=== PATIENT | female | born 1955 | race Caucasian/White ===

== ENCOUNTER 2017-03-14 08:30 | Inpatient (IN) | payer BC ==
[2017-02-22 08:19] VITALS: Ht 161.3 cm; Wt 76.0 kg
--- NOTE | 2017-02-22 08:55 | PAT Medication Instructions ---
Service Date Feb 22, 2017. Current Home Medication List Acetaminophen (Tylenol Arthritis Ext Rel), 2 TAB PO Q8H PRN for Pain Amoxapine (Amoxapine), 1 TAB PO HS Atenolol (Tenormin), 50 MG PO QAM Cetirizine (Zyrtec), 10 MG PO HS Clonazepam (Klonopin), 0.5 MG PO BID PRN for ANXIETY Coenzyme Q10 (Ubidecarenone) (Coq-10), 1 CAP PO QAM Gabapentin (Neurontin), 300 MG PO TID Hydrochlorothiazide (Hctz), 25 MG PO QAM Lactic Acid (Ammonium Lactate Cream 12%), 1 DOSE TOP UD PRN for DRYNESS Lisinopril (Zestril), 20 MG PO QPM Meloxicam (Mobic), 7.5 MG PO BID Red Yeast Rice Extract (Red Yeast Rice), 2 CAP PO QAM Triamcinolone Acet (Aristocort 0.1%), Unknown Dose for RASHES Medication Instructions For Your Scheduled Surgery Meloxicam (Mobic), 7.5 MG PO BID (check with surgeon for instructions) - Hold the following medications 2 weeks prior to surgery: Red Yeast Rice Extract (Red Yeast Rice), 2 CAP PO QAM Coenzyme Q10 (Ubidecarenone) (Coq-10), 1 CAP PO QAM - Hold the following medications 24 hours prior to surgery: Triamcinolone Acet (Aristocort 0.1%), Unknown Dose for RASHES - Hold the following medications the morning of surgery: Lactic Acid (Ammonium Lactate Cream 12%), 1 DOSE TOP UD PRN for DRYNESS Hydrochlorothiazide (Hctz), 25 MG PO QAM - Take the following medications the morning of surgery with a sip of water: Acetaminophen (Tylenol Arthritis Ext Rel), 2 TAB PO Q8H PRN for Pain Atenolol (Tenormin), 50 MG PO QAM Gabapentin (Neurontin), 300 MG PO TID Clonazepam (Klonopin), 0.5 MG PO BID PRN for ANXIETY - Hold the following medications as scheduled the night before surgery: Lisinopril (Zestril), 20 MG PO QPM - Take the following medications as scheduled the night before surgery: Acetaminophen (Tylenol Arthritis Ext Rel), 2 TAB PO Q8H PRN for Pain Gabapentin (Neurontin), 300 MG PO TID Cetirizine (Zyrtec), 10 MG PO HS Clonazepam (Klonopin), 0.5 MG PO BID PRN for ANXIETY Amoxapine (Amoxapine), 1 TAB PO HS If you have any questions please call us at [phone] (Sylwia Jimenez PA-C) or [phone] or [phone]
[2017-02-22 09:47] LABS: BASO % 0.5 %; BASO ABS # 0.03 K/uL (0-0.2); COMPLETE YES; EOS % 2.5 %; HEMATOCRIT 35.4 % (37-47); IG% 0.4 %; LYMPH % 27.5 %; LYMPH ABS # 1.56 K/uL (1.2-3.4); MEAN CELL VOLUME 87.8 fL (80-100); MEAN CORPUSCULAR HEMOGLOBIN 29.5 pg (25-34); MEAN CORPUSCULAR HGB CONC 33.6 g/dl (32-36); MEAN PLATELET VOLUME 10.6 fL (7.4-10.4); MONO % 6.7 %; NEUT % 62.4 %; PLATELET COUNT 212 K/uL (130-400); RED BLOOD COUNT 4.03 M/uL (4.2-5.4); WHITE BLOOD COUNT 5.68 K/uL (4.8-10.8)
[2017-02-22 10:00] LABS: INR 0.9 (0.9-1.1); PARTIAL THROMBOPLASTIN RATIO 0.9
[2017-02-22 10:08] LABS: ESTIMATED AVERAGE GLUCOSE 134 mg/dl; HA1C FLAG Normal (Normal)
--- NOTE | 2017-02-22 10:36 | DIAGNOSTIC IMAGING REPORT ---
CHEST PREADMISSION(PA/LAT) HISTORY: Preop. COMPARISON: None. FINDINGS: Small linear scarlike density within the lingula. The lungs are otherwise clear. No pleural effusions. No pneumothorax. The heart is normal in size. IMPRESSION: No acute process. Electronically signed by: Oscar Hamilton M.D. 02/22/2017 10:35 AM Dictated Date/Time: 02/22/2017 9:39 AM
[2017-02-22 11:15] LABS: BUN/CREATININE RATIO 30.5 (10-20); CALCIUM 9.2 mg/dl (8.5-10.1); CREATININE 1.3 mg/dl (0.60-1.20); POTASSIUM 5.3 mmol/L (3.5-5.1)
--- NOTE | 2017-03-10 21:39 | HISTORY & PHYSICAL EXAMINATION ---
DATE OF ADMISSION: 03/14/2017 CHIEF COMPLAINT: Left knee pain. HISTORY OF PRESENT ILLNESS: A 62-year-old female, who presents on referral from my partner Dr. Madison for treatment of her left knee primarily. She has got a long history of bilateral knee pain and discomfort, left side greater than the right. She has been through extensive conservative care which has become less successful with time. Both the knees hurt, but the left knee hurts more than the right. She describes global pain. The more she walks, the more it hurts. She has nighttime discomfort. She has been through extensive conservative care including medicines and injections with minimal relief recently. She would like to have her left knee replaced. PAST MEDICAL HISTORY: Significant for: 1. Elevated cholesterol. 2. Hypertension. 3. Fibromyalgia. 4. Raynaud's phenomenon. 5. Diabetes. 6. Osteoarthritis. PAST SURGICAL HISTORY: Includes: 1. x2. 2. D\T\C. 3. Nasal silicone button insertion. 4. Hemorrhoid surgery x2. ALLERGIES: TO CLINDAMYCIN WHICH CAUSES FLUSHING, STATINS WHICH CAUSES MUSCLE PAIN, NARCOTICS WHICH CAUSES NAUSEA, DEMEROL WHICH CAUSES FLUSHING, PENICILLIN WHICH CAUSES HIVES AND LEVAQUIN, MOLD AND MILDEW. CURRENT MEDICINES: Include: 1. Atenolol 50 mg once a day. 2. Hydrochlorothiazide 25 mg. 3. Neurontin 300 mg three times a day. 4. Zyrtec 10 mg a day. 5. Meloxicam 15 mg a day. 6. Lisinopril 20 mg a day. 7. Amoxapine 50 mg a day. 8. Tylenol Arthritis. 9. Clonazepam. SOCIAL HISTORY: A 62-year-old female. She is . She is from [place]. FAMILY HISTORY: Noncontributory. REVIEW OF SYSTEMS: Negative for any chest pain or shortness of breath. No history of DVT or PE. No bleeding problems. PHYSICAL EXAMINATION: GENERAL: Reveals a pleasant, middle-aged female. She looks a little older than her stated age. HEENT: Benign. NECK: Supple. No lymphadenopathy. LUNGS: Clear to auscultation. HEART: Has a regular rate and rhythm. ABDOMEN: Soft, nontender and nondistended. EXTREMITIES: Grossly neurovascularly intact except as follows: Examination of the left knee reveals the patient walks with an antalgic gait. She has got a varus alignment to her knee with a varus thrust. Small knee effusion. She does have bony hypertrophy medially. Range of motion is 5-120. No instability. No pain with hip motion. X-RAYS: X-rays of the left knee were reviewed. It shows advanced left knee tricompartmental DJD. She has significant tibial femoral subluxation. She has got osteophytes in all 3 compartments. ASSESSMENT: A 62-year-old female, with advanced bilateral knee degenerative joint disease, the left side more symptomatic than the right. She has failed conservative treatment and would like to have her left knee replaced. PLAN: We are going to take her to the operating room and do a left total knee replacement. The risks and benefits of this procedure were explained to the patient including but not limited to DVT, PE, , infection, neurological injury, neurovascular or bleeding problem, pain, limited range of motion, stiffness, failure to relieve symptoms, incomplete relief of symptoms, need for further surgery in the future, fracture, leg length inequality, nerve palsy, need for revision surgery, etc. The patient understands and desires to proceed. Informed consent was obtained. We did talk about taking her metoprolol on the morning of surgery and holding her lisinopril as well as the Mobic. She will likely need insulin sliding scale coverage due to her diabetes. She reports a reaction to penicillin, but is not a true allergy. We will give her Ancef preoperatively. SOBEIDA
[~2017-03-14] VITALS: Ht 161.3 cm; Wt 76.0 kg
[2017-03-14] VITALS (11 sets, daily range): BP systolic 94–127; BP diastolic 61–99; PULSE 58–77; TEMP 36.3–37; O2SAT 91–100
[~2017-03-14 08:30] MED LIST: ACET1TAB84 PO; ACETAMINOPHEN 500 MG TAB PO SCH; AMOX50TA PO; ATEN50TA8 PO; ATROPINE SULFATE 0.1 MG/ML 5ML SYR IV PRN; BUPIVACAINE 0.25% 30 ML VIAL ONE; BUPIVACAINE 0.5 % 5 MG/1 ML PF 10ML VIAL ONE; BUPIVACAINE LIPOSOME 266 MG, BUPIVACAINE/EPINEPHRINE INJ 50 ML, SODIUM CHLORIDE 0.9% PF... INFIL SCH; CEFAZOLIN 2000 MG/60 ML D5W 60 ML IV SCH; CETI10TA84 PO; CLON0.5T3 PO; COEN100C11 PO; EpHEDrine SULFATE INJ 50 MG/ML AMP IV PRN; FAMOTIDINE 20 MG TAB PO SCH; GABA-113 PO; GABAPENTIN 300 MG CAP PO SCH; HYDR25TA4 PO; LACTATED RINGER'S 1000ML 1,000 ML IV SCH; LACTATED RINGER'S 1000ML 500 ML IV ONE; LACTATED RINGER'S 1000ML IV SCH; LCHC12280 TOP; LISI-725 PO; MELO7.5T5 PO; METOCLOPRAMIDE HCL 10 MG TAB PO SCH; ONDANSETRON INJ 2 MG/ML 2 ML VIAL IV PRN; REDCAP2 PO; SCOPOLAMINE 1.5 MG TDSY TD SCH; TRANEXAMIC ACID INJ 1,000 MG in SODIUM CHLORIDE 0.9% 100ML 100 ML IV SCH; TRMCR130WC
--- NOTE | 2017-03-14 09:05 | History & Physical Bridge Note ---
H&P Re-Evaluation Bridge Note: I have examined the patient, reviewed the History & Physical and in the interval since the performance of the History & Physical I have noted the following changes of clinical significance: No changes noted
[2017-03-14] MEDS ORDERED: FENTANYL CITRATE INJ 50 MCG/1 ML 2 ML VIAL ONE (10:10)
[2017-03-14] MEDS ORDERED: MIDAZOLAM HCL 1 MG/ML 2ML VIAL ONE (10:10)
[2017-03-14] MEDS ORDERED: PROPOFOL IV EMULSION 10 MG/ML 20 ML VIAL IV ONE (10:28)
[2017-03-14] MEDS ORDERED: LIDOCAINE HCL 2% 2 ML VIAL (20MG/ML) ONE (10:28)
[2017-03-14] MEDS ORDERED: BUPIVACAINE LIPOSOME 1/3% 266 MG/20 ML VIAL INFIL ONE (11:10)
[2017-03-14] MEDS ORDERED: BACITRACIN 50000 UNIT VIAL ONE (11:10)
[2017-03-14] MEDS ORDERED: BUPIVACAINE/EPINEPHRINE 0.25% 1:200,000 30 ML VIAL ONE (11:10)
[2017-03-14] MEDS ORDERED: SODIUM CHLORIDE 0.9% PF 50 ML VIAL ONE (11:10)
[2017-03-14] MEDS ORDERED: PHENYLEPHRINE 100MCG/ML 5ML SYR ONE (11:57)
[2017-03-14] MEDS ORDERED: EpHEDrine SULFATE 50MG/5ML SYR ONE (12:08)
[2017-03-14] MEDS ORDERED: VASOPRESSIN 20 UNIT/ML VIAL ONE (12:08)
[2017-03-14] MEDS ORDERED: PHENYLEPHRINE HCL INJ 10 MG/ML VIAL ONE (12:23)
--- NOTE | 2017-03-14 12:57 | [facility] Post Operative Brief Note ---
Immediate Operative Summary Operative Date Mar 14, 2017. Pre-Operative Diagnosis Left knee degenerative joint disease Post-Operative Diagnosis Left knee degenerative joint disease Procedure(s) Performed Left total knee arthroplasty Surgeon Dr. Puma Schrader Head Chopper Surgeon(s) Horace Walls PA-C Estimated Blood Loss 50 ml Findings Left Knee DJD Specimens A. Left knee bone and tissue Drains None Anesthesia Spinal Complication(s) None Disposition Recovery Room / PACU
[2017-03-14] MEDS ORDERED: GLUCOSE 40% GEL 15 GM TUBE PO PRN (13:00)
[2017-03-14] MEDS ORDERED: HYDROmorphone INJ 1 MG/ML SYR IV PRN (13:00)
[2017-03-14] MEDS ORDERED: CLONAZEPAM 0.5 MG TAB PO PRN (13:00)
[2017-03-14] MEDS ORDERED: GLUCOSE 10 TABS/TUBE PO PRN (13:00)
[2017-03-14] MEDS ORDERED: ZOLPIDEM TARTRATE 5 MG TAB PO PRN (13:00)
[2017-03-14] MEDS ORDERED: ALUMINUM/MAGNESIUM/SIMETH (MAALOX MAX) 30 ML UDC PO PRN (13:00)
[2017-03-14] MEDS ORDERED: DEXTROSE 50% 50 ML SYR IV PRN (13:00)
[2017-03-14] MEDS ORDERED: METOCLOPRAMIDE HCL INJ 5 MG/ML 2 ML VIAL IV PRN (13:00)
[2017-03-14] MEDS ORDERED: GLUCAGON FOR INJ 1 MG VIAL SQ PRN (13:00)
[2017-03-14] MEDS ORDERED: DiphenhydrAMINE HCL 50 MG/ML VIAL IV PRN (13:00)
[2017-03-14] MEDS ORDERED: EpHEDrine SULFATE INJ 50 MG/ML AMP ONE (13:22)
--- NOTE | 2017-03-14 13:27 | DIAGNOSTIC IMAGING REPORT ---
LEFT KNEE 2 VIEWS History: Left total knee arthroplasty. Degenerative arthritis. Postop. FINDINGS: The patient is status post a left total knee arthroplasty. The hardware is intact. No fracture or dislocation. Skin rubin are in place. IMPRESSION: Left total knee arthroplasty. No evidence for hardware complication. Electronically signed by: Oscar Hamilton M.D. 03/14/2017 1:25 PM Dictated Date/Time: 03/14/2017 1:25 PM
--- NOTE | 2017-03-14 13:48 | Anesthesiology Progress Note ---
Anesthesia Post Op Note Date & Time Mar 14, 2017 at 13:47 Vital Signs Pain Intensity: 0 Vital Signs Past 12 Hours Date Time Temp Pulse Resp B/P Pulse Ox O2 Delivery O2 Flow Rate FiO2 03/14/17 13:30 78 17 90/61 95 Nasal Cannula 2 03/14/17 13:20 78 18 93/52 98 Nasal Cannula 2 03/14/17 13:10 75 17 89/74 98 Nasal Cannula 2 03/14/17 13:02 36.7 84 14 121/45 96 Nasal Cannula 2 03/14/17 09:18 36.6 68 20 127/99 99 Room Air Notes Mental Status: alert / awake / arousable, participated in evaluation Pt Amnestic to Procedure: Yes Nausea / Vomiting: adequately controlled Pain: adequately controlled Airway Patency, RR, SpO2: stable & adequate BP & HR: stable & adequate Hydration State: stable & adequate Neuraxial Anesthesia: was administered, sensory block is resolving Anesthetic Complications: no major complications apparent
--- NOTE | 2017-03-14 13:54 | OPERATIVE REPORT ---
DATE OF OPERATION: 03/14/2017 PREOPERATIVE DIAGNOSIS: Left knee degenerative joint disease. POSTOPERATIVE DIAGNOSIS: Same. PROCEDURE PERFORMED: Left cemented posterior stabilized total knee arthroplasty. SURGEON: Dr. Puma Schrader. MANAGING DIRECTOR ATLAS: Horace Walls PA-C. COMPLICATIONS: None. ESTIMATED BLOOD LOSS: 50 mL. FLUID REPLACEMENT: 2100 mL crystalloid fluid replacement. ANESTHESIA: Spinal with adductor canal block. DRAINS: None. SPECIMENS: Left knee sent for pathology. TOURNIQUET TIME: 61 minutes at 300 mmHg. OPERATIVE INDICATIONS: The patient is a 62-year-old female who has had a long history of left knee pain and discomfort. She has been treated extensively by my partner Dr. Madison. This became less successful over time. Pain has become more debilitating. She would like to proceed with total knee arthroplasty. OPERATIVE FINDINGS: Operative findings revealed advanced left knee DJD. She had extensive grade 4 [id number] disease with eburnation of the medial femoral condyle and medial tibial plateau. The remainder of her knee was fairly well preserved. She did have tibial femoral subluxation with significant osteophytes in the medial compartment and a moderate size joint effusion. She also had a significant osteophyte off the patella. OPERATIVE IMPLANTS: Operative implants consisted of: 1. Biomet Vanguard size 62.5 left posterior stabilized femoral component. 2. Biomet size 63 tibial tray. 3. A 10 mm posterior stabilized polyethylene insert. 4. A 28 x 8 all poly patella. OPERATIVE PROCEDURE: The patient taken to the operating room, identified and placed on operative table in supine position. All contact areas were appropriately padded. IV antibiotics were provided by anesthesia team. A spinal anesthetic and adductor canal block had been provided in the holding area. Velásquez catheter was placed in sterile fashion. Left thigh tourniquet was then placed and left lower extremity was then prepped and draped in the usual sterile fashion. The left leg was elevated and exsanguinated with Esmarch and tourniquet was placed at 300 mmHg. An anterior approach of the left knee was then performed through a longitudinal incision centered over the patella. Sharp dissection was carried through the subcutaneous tissues down to the level of the extensor mechanism. A medial parapatellar arthrotomy incision was made. Some subperiosteal dissection was carried out medially. The fat pad was resected from beneath the patellar tendon. The lateral patellofemoral ligament was released. The patella was everted and knee was flexed. The osteophytes were taken off the distal femur. The ACL and PCL were released from the distal femur and the tibia subluxated anteriorly. The external tibial alignment jig was then placed in the anterior face of the tibia and adjusted 16 mm medially. Proximal tibial cut was made to essentially flush with the most deficient aspect of the posteromedial tibial plateau. Some osteophytes were taken off medial and posteromedially. Tibia was sized to a size 63. Attention was then drawn to the femur. The distal femur was entered with a sharp drill bit. Intramedullary canal was suctioned. A left 5 degree valgus cutting guide was placed. Distal femoral cutting block was pinned in place. Distal femoral cut was made to take an additional 3 mm of bone off the distal femur. The femur was then sized to a size 62.5. We did downsize this just slightly. The AP cutting block was pinned parallel to the epicondylar axis, which was 5 degrees of external rotation. The anterior cut, anterior chamfer, posterior cut, posterior chamfer cuts were made. Box cutting guide was placed and adjusted slightly lateral and the box cut was made. The remnants of the medial and lateral menisci were excised. The osteophytes were taken off the posterior aspect of the femur. Trial femoral component was placed. The tibial tray was then pinned in maximum external rotation and drill and stem punch were used to create defect in proximal tibia for the tibial tray. The knee was then trialed. It was still tight in both flexion and extension, so I did remove the tibial tray and recut the tibia. I took an additional 3 mm off the tibia. We did redrill this and repunch it. I then trialed it again and the 10 mm insert fit appropriately. Attention was then drawn to the patella. The patella was cleaned of all soft tissues. Patellar thickness measured 21 mm and was cut down to 12. It was sized to a size 28 patella. Lug holes were drilled for the 28 patella. Lateral osteophyte was removed. Patella button was placed. Knee was taken through range of motion and the patella tracked nicely with no thumbs test. Attention was then drawn toward placement of the permanent components. All trial components removed. Bone plug was placed in the mid distal femur to limit blood loss. A double batch of Palacos G cement was mixed. A left size 62.5 posterior stabilized femoral component, size 63 tibial tray, a 10 mm posterior stabilized polyethylene insert, and a 28 x 8 all poly patella then cemented in place. Knee was brought out into full extension until cement hardened. A final cement check was then performed. The pericapsular tissues were injected with a total of 100 mL of a combination of 20 mL of Exparel, 30 mL of normal saline, 50 mL of 0.25% Marcaine with epinephrine. The patient did receive 1 gram of tranexamic acid. The tourniquet was then let down for final tourniquet time of 61 minutes. Hemostasis was assured with use of electrocautery. The wound was once again irrigated. The extensor mechanism was then closed with a combination of #1 PDS suture and #1 Vicryl suture in a [id number] fashion. Extensor mechanism was checked and found to be intact. The subcutaneous tissues were then closed with 2-0 Dexon suture in a buried interrupted fashion. Skin was closed skin rubin. Leg was then cleaned and dried and a sterile dressing of Xeroform, 4 x 4, sterile cast padding and Phli bandage were applied. The patient then transferred to the recovery room in stable condition. The patient tolerated the procedure well with no complications. All needle and sponge counts were correct at the end of the operation. I attest to the content of the Intraoperative Record and any orders documented therein. Any exceptio ns are noted below.
[2017-03-14] MEDS ORDERED: ONDANSETRON INJ 2 MG/ML 2 ML VIAL ONE (15:59)
--- NOTE | 2017-03-14 16:28 | PROGRESS NOTE ---
DATE: 03/14/2017 SUBJECTIVE: A 62-year-old female postop from a left knee replacement. She is doing pretty well. Not having any pain yet. Says she feels "queasy. Denies any chest pain or shortness of breath. OBJECTIVE: VITAL SIGNS: Temperature is 36.7. Vital signs stable. Hypotension, her blood pressure is 91/65. GENERAL: Reveals a pleasant, middle-aged female. The patient is lying in bed, looks reasonably comfortable. LUNGS: Clear to auscultation. HEART: Regular rate and rhythm. ABDOMEN: Soft, nontender, nondistended. EXTREMITIES: Grossly neurovascularly intact except as follows: Examination of the left lower extremity reveals the dressing to be clean, dry and intact. Leg is well aligned. She is just starting to be able to just wiggle her toes slightly. She has got brisk refill. Good distal pulse. X-RAYS: X-rays of the left knee from recovery room were reviewed. It shows a cemented posterior stabilized total knee arthroplasty. The components looked to be in good position. No signs of problems. ASSESSMENT: A 62-year-old female postop from a left knee replacement, doing pretty well. She has been a little hypotensive. Not clearly symptomatic at this point. Nerve function is just starting to return. PLAN: 1. DVT prophylaxis including thigh-high TEDs, SCDs, and aspirin twice a day. 2. PT/OT. Weightbearing as tolerated. Left total knee protocol. 3. Pain control. Denies any significant pain yet. We will obviously have to dose her with medicines as she develops pain. 4. IV antibiotics x 24 hours. 5. Disposition: She is planning to be discharged to home likely with some home health once adequately recovered.
[2017-03-14] MEDS ORDERED: AMMONIUM LACTATE 12% LOTION 225 GM BTL EXT PRN (16:30)
[2017-03-14] MEDS: CHECK SCOPOLAMINE PATCH PLACEMENT SCH ×2 (16:33→23:25)
[2017-03-14] MEDS: SODIUM CHLORIDE 0.9% 1000ML 1,000 ML IV SCH (16:33)
[2017-03-14] MEDS: INSULIN HUMAN REGULAR SC SCH ×2 (17:15→21:00)
[2017-03-14] MEDS: GABAPENTIN 300 MG CAP PO SCH ×2 (17:21→21:34)
[2017-03-14] MEDS: FERROUS GLUCONATE 324 MG TAB PO SCH (17:45)
[2017-03-14] MEDS: KETOROLAC TROMETHAMINE 15 MG/ML VIAL IV. SCH ×2 (17:45→23:20)
[2017-03-14] MEDS: CEFAZOLIN IV 1,000 MG in DEXTROSE 5% 50ML 50 ML IV SCH (18:31)
[2017-03-14] MEDS ORDERED: TRANEXAMIC ACID INJ 1,000 MG in SODIUM CHLORIDE 0.9% 100ML 100 ML IV SCH (19:00)
[2017-03-14] MEDS: CETIRIZINE HCL 10 MG TAB PO SCH (21:34)
[2017-03-14] MEDS: ASPIRIN 325 MG ECTAB PO SCH (21:34)
[2017-03-14] MEDS: ACETAMINOPHEN 500 MG TAB PO SCH (21:34)
[2017-03-14] MEDS: LISINOPRIL 20 MG TAB PO SCH (21:35)
[2017-03-14] MEDS: DOCUSATE SODIUM 100 MG CAP PO SCH (21:35)
[2017-03-14] MEDS: AMOXAPINE PO SCH (21:36)
[2017-03-14] MEDS: TAPENTADOL ER 50 MG TABCR PO SCH (21:36)
[2017-03-14] MEDS: HYDROmorphone HCL 2 MG TAB PO PRN (23:20)
[2017-03-15] VITALS (8 sets, daily range): BP systolic 91–121; BP diastolic 56–77; PULSE 72–93; TEMP 36.9–37.3; O2SAT 91–99
[2017-03-15] MEDS: SODIUM CHLORIDE 0.9% 1000ML 1,000 ML IV SCH ×2 (02:16→12:22)
[2017-03-15] MEDS: CEFAZOLIN IV 1,000 MG in DEXTROSE 5% 50ML 50 ML IV SCH (02:16)
[2017-03-15] MEDS: HYDROmorphone HCL 2 MG TAB PO PRN ×4 (04:04→20:44)
[2017-03-15 05:14] LABS: MEAN CELL VOLUME 88.5 fL (80-100); MEAN CORPUSCULAR HEMOGLOBIN 28.3 pg (25-34); PLATELET COUNT 158 K/uL (130-400); RED BLOOD COUNT 3.39 M/uL (4.2-5.4)
[2017-03-15 05:40] LABS: BUN/CREATININE RATIO 22.9 (10-20); CALCIUM 7.9 mg/dl (8.5-10.1); CREATININE 0.98 mg/dl (0.60-1.20); POTASSIUM 3.7 mmol/L (3.5-5.1)
[2017-03-15] MEDS: KETOROLAC TROMETHAMINE 15 MG/ML VIAL IV. SCH ×4 (06:08→23:32)
[2017-03-15] MEDS: ACETAMINOPHEN 500 MG TAB PO SCH ×3 (06:08→21:42)
[2017-03-15] MEDS: INSULIN HUMAN REGULAR SC SCH ×4 (08:00→21:38)
[2017-03-15] MEDS: CHECK SCOPOLAMINE PATCH PLACEMENT SCH ×3 (08:16→23:32)
[2017-03-15] MEDS: MULTIVITAMIN TAB PO SCH (08:17)
[2017-03-15] MEDS: ASPIRIN 325 MG ECTAB PO SCH ×2 (08:17→21:42)
[2017-03-15] MEDS: FERROUS GLUCONATE 324 MG TAB PO SCH ×3 (08:18→17:45)
[2017-03-15] MEDS: PANTOprazole SOD 40 MG TAB PO SCH (08:18)
[2017-03-15] MEDS: GABAPENTIN 300 MG CAP PO SCH ×3 (08:19→21:42)
[2017-03-15] MEDS: DOCUSATE SODIUM 100 MG CAP PO SCH ×2 (08:19→21:42)
[2017-03-15] MEDS: HYDROCHLOROTHIAZIDE 25 MG TAB PO SCH (08:19)
[2017-03-15] MEDS: TAPENTADOL ER 50 MG TABCR PO SCH ×2 (08:20→21:00)
[2017-03-15] MEDS ORDERED: RED YEAST RICE EXTRACT PO SCH (09:00)
[2017-03-15] MEDS ORDERED: NON-FORMULARY MEDICATION (Coenzyme Q10 (Ubidecarenone) (Coq-10) 1 CAP) PO SCH (09:00)
--- NOTE | 2017-03-15 11:04 | Anesthesiology Progress Note ---
Anesthesia Post Op Note Date & Time Mar 15, 2017 at 11:03 Vital Signs Pain Intensity: 5.0 Vital Signs Past 12 Hours Date Time Temp Pulse Resp B/P Pulse Ox O2 Delivery O2 Flow Rate FiO2 03/15/17 11:02 37.2 72 18 99/66 99 Room Air 03/15/17 08:22 80 92/62 03/15/17 07:29 37.3 75 15 91/56 96 Room Air 03/15/17 07:05 Room Air 03/15/17 03:59 36.9 93 18 99/65 91 Room Air 03/14/17 23:58 110/73 03/14/17 23:34 36.3 73 16 91 Room Air Notes Mental Status: alert / awake / arousable, participated in evaluation Pt Amnestic to Procedure: Yes Nausea / Vomiting: adequately controlled Pain: adequately controlled Airway Patency, RR, SpO2: stable & adequate BP & HR: stable & adequate Hydration State: stable & adequate Neuraxial Anesthesia: sensory block resolved Anesthetic Complications: no major complications apparent
[2017-03-15] MEDS: ONDANSETRON INJ 2 MG/ML 2 ML VIAL IV PRN ×2 (11:30→17:11)
[2017-03-15] MEDS ORDERED: HYDR2TAB3 PO (12:27)
[2017-03-15] MEDS ORDERED: MORP15TA19 PO (12:27)
[2017-03-15] MEDS ORDERED: FRRG PO (12:27)
[2017-03-15] MEDS ORDERED: ACET-1138 PO (12:27)
[2017-03-15] MEDS ORDERED: ASPEC325 PO (12:27)
--- NOTE | 2017-03-15 13:40 | Discharge Instructions ---
Discharge Instructions Date of Service Mar 15, 2017. Admission Reason for Admission: Left Knee Degenerative Joint Disease Discharge Discharge Diagnosis / Problem: Left Knee Replacement Discharge Goals Goal(s): Decrease discomfort, Improve function, Increase independence, Improve disease control, Therapeutic intervention Activity Recommendations Activity Limitations: per Instructions/Follow-up section Weightbearing Status: Left weightbearing . Instructions / Follow-Up Instructions / Follow-Up ACTIVITY RECOMMENDATIONS: Physical Therapy: * You will go to physical therapy three times each week for four to six weeks after your surgery in order to regain your knee range of motion and to retrain your knee to work properly. * It is just as important to make sure you are getting your knee perfectly straight as it is to regain your knee bend. * Taking a pain pill an hour before therapy can help you have a more productive and comfortable therapy session. Home Exercise: * You were shown a series of exercises (heel props, heel slides, etc.) in the hospital. Do these exercises three to four times each day including the exercises you were shown in physical therapy. Walking: * Get up and walk several times each day. For the first four weeks, try not to stand or walk for more than one hour at a time. If you do stand or walk for more than one hour, you will not hurt anything, but your knee and leg will likely swell. * As you feel comfortable, you may change from the walker or crutches to a cane and then to independent walking. MEDICATIONS: New Medicine: * You will likely be taking one or more of these medications: 1. MS Contin - A long-acting pain medication. Take 1 tablet twice a day for the first ten days to decrease your baseline level of pain. 2. Dilaudid - A quick and shorter-acting pain medication. Take one to two tablets every four to six hours to lessen your pain. 3. Iron Sulfate - Take three times each day for the month after surgery to help you replace the blood lost during surgery. 4. Aspirin - Thins your blood to lessen the chance of forming a blood clot. * The most common side effects of pain medicine and iron are nausea and constipation. If nausea or constipation is too much of a problem or if you have any questions about your new medicines or doses, call [facility] at [phone]. We will try to help you manage these issues. VERY IMPORTANT TO READ AND REVIEW" Pain: * The immediate post-operative period after knee replacement surgery is often quite painful. * You are given a prescription for pain medicine. You should take it, as directed, when you need it, especially before physical therapy and before going to bed. Pain that interferes with sleep is very common and can last several months. * You will likely need pain medicine for the first four to six weeks. It will not stop all of the pain. The pain will lessen and as you feel better, you may change to milder pain medicine such as Tylenol. * The most common side effects of pain medicine are nausea and constipation, so don't take more than you need. SPECIAL CARE INSTRUCTIONS: TEDs/Elastic Stockings: * The white elastic stockings help limit swelling and prevent blood clots from forming in your legs. The more you wear them, the more they work. * Wear them for six weeks after knee replacement surgery and four weeks after partial knee replacement. Prevention of Infection: * Take antibiotics one hour before any dental cleaning, dental work, urological procedure, gastrointestinal procedure or any invasive surgery in order to prevent your new joint from getting infected. * You may get the antibiotics from the doctor performing the procedure or you may call our office at before and we will call in a prescription to the pharmacy of your choice. Things to Watch For: * Drainage from the incision site that occurs more than one week after your surgery. * Severely increased knee/leg pain or swelling. * Increased redness at the incision site. * Fever above 102 degrees Fahrenheit. * Unusual chest pain or shortness of breath. * Unusual pain or burning with urination. Call [facility] at with any of the above problems or if you have any questions about your medicines or recovery. FOLLOW UP VISIT: Make an appointment to see your doctor for approximately two weeks after surgery for a progress check and staple removal by calling the office at . Current Hospital Diet Patient's current hospital diet: Diabetes Type 2 Diet Discharge Diet Recommended Diet: Diabetes Type 2 Diet Procedures Procedures Performed: Left total knee arthroplasty Pending Studies Studies pending at discharge: no Laboratory Results Hemoglobin A1c Test 02/22/17 09:04 Range/Units Estimated Average Glucose 134 mg/dl Hemoglobin A1c 6.3 H 4.5-5.6 % Medical Emergencies . Who to Call and When: Medical Emergencies: If at any time you feel your situation is an emergency, please call 911 immediately. . Non-Emergent Contact Non-Emergency issues call your: Surgeon . "Provider Documentation" section prepared by Puma Schrader. . VTE Core Measure Inpt VTE Proph given/why not?: Other Anticoagulation, T.E.D. Stockings, SCD's
--- NOTE | 2017-03-15 13:51 | PROGRESS NOTE ---
DATE: 03/15/2017 SUBJECTIVE: A 62-year-old female postop day #1 from a left knee replacement. She is doing pretty well. Pain is reasonably well controlled. Therapy went pretty well this morning. Denies any chest pain or shortness of breath. Not feeling dizzy or lightheaded. OBJECTIVE: VITAL SIGNS: Temperature is 37.2. Vital signs stable. GENERAL: Reveals a pleasant, middle-aged female. She is sitting in her bed and talking to her spouse. She looks pretty comfortable. EXTREMITIES: Examination of the left leg reveals the leg to be well aligned. Dressing is clean, dry and intact. The patient can dorsiflex and plantarflex her foot appropriately. She is neurologically intact. LABORATORY DATA: Hemoglobin 9.6, hematocrit 30.0. Electrolytes are stable. ASSESSMENT: A 62-year-old female postop day #1 from left knee replacement. She is doing pretty well. Doing pretty well with Dilaudid pain medicine. She is neurologically intact. PLAN: 1. DVT prophylaxis including thigh-high TEDs, SCDs, and aspirin twice a day. 2. PT/OT. Weightbearing as tolerated. Left total knee protocol. 3. Pain control, doing pretty well with current pain regimen. 4. Disposition: Plan to discharge to home with some home health once adequately recovered.
[2017-03-15] MEDS: AMOXAPINE PO SCH (21:42)
[2017-03-15] MEDS: CETIRIZINE HCL 10 MG TAB PO SCH (22:11)
[2017-03-15] MEDS: LISINOPRIL 20 MG TAB PO SCH (22:11)
[2017-03-16] MEDS: HYDROmorphone HCL 2 MG TAB PO PRN ×3 (04:11→12:13)
[2017-03-16] MEDS: KETOROLAC TROMETHAMINE 15 MG/ML VIAL IV. SCH ×2 (05:59→11:49)
[2017-03-16] MEDS: ACETAMINOPHEN 500 MG TAB PO SCH (05:59)
[2017-03-16] MEDS: ONDANSETRON INJ 2 MG/ML 2 ML VIAL IV PRN ×2 (06:02→11:48)
[2017-03-16 06:52] VITALS: BP 121/80; PULSE 84; TEMP 37.2; O2SAT 91
--- NOTE | 2017-03-16 07:40 | PROGRESS NOTE ---
DATE: 03/16/2017 SUBJECTIVE: 62-year-old female postop day 2 from knee replacement. She is doing pretty well. Pain seems to be controlled. Denies any chest pain or shortness of breath. Not feeling dizzy or lightheaded. OBJECTIVE: VITAL SIGNS: Temperature 37.2. Vital signs stable. PHYSICAL EXAMINATION: GENERAL: The patient is lying in bed, looks pretty comfortable. EXTREMITIES: Examination of the left leg reveals just a slight bit of bloody drainage on the dressing. She can dorsiflex and plantarflex her foot appropriately. She is neurologically intact. ASSESSMENT: 62-year-old female postop day 2 from a left knee replacement, doing pretty well. PLAN: 1. DVT prophylaxis including thigh-high TEDs, SCDs, and aspirin twice a day. 2. PT/OT. Weightbearing as tolerated. Left total knee protocol. 3. Pain control, doing pretty well with current pain regimen. 4. Disposition: Plan to discharge to home with some home health later on today.
[2017-03-16] MEDS: INSULIN HUMAN REGULAR SC SCH (08:00)
[2017-03-16] MEDS: GABAPENTIN 300 MG CAP PO SCH (08:09)
[2017-03-16] MEDS: PANTOprazole SOD 40 MG TAB PO SCH (08:09)
[2017-03-16] MEDS: FERROUS GLUCONATE 324 MG TAB PO SCH (08:09)
[2017-03-16] MEDS: HYDROCHLOROTHIAZIDE 25 MG TAB PO SCH (08:09)
[2017-03-16] MEDS: MULTIVITAMIN TAB PO SCH (08:09)
[2017-03-16] MEDS: TAPENTADOL ER 50 MG TABCR PO SCH (08:12)
[2017-03-16] MEDS: ASPIRIN 325 MG ECTAB PO SCH (09:53)
[2017-03-16] MEDS: DOCUSATE SODIUM 100 MG CAP PO SCH (09:53)
[2017-03-16 10:40] VITALS: BP 121/80; PULSE 84; TEMP 37.2; O2SAT 91
--- NOTE | 2017-03-22 15:27 | DISCHARGE SUMMARY ---
ADMITTING PHYSICIAN AND SURGEON: Dr. Schrader. ADMITTING DIAGNOSIS: Left knee degenerative joint disease. SURGERY PERFORMED: Left total knee arthroplasty. SECONDARY DIAGNOSES: Include elevated cholesterol, hypertension, fibromyalgia, Raynaud's phenomena, diabetes, arthritis. HISTORY AND PHYSICAL EXAMINATION: Well documented in patient's chart. HOSPITAL COURSE: The patient was admitted on 03/14/2017 underwent total knee arthroplasty, tolerated the procedure well. There were no complications. She was transferred to PACU postoperatively and later to the orthopedic floor for further care. She was given Ancef for antibiotic prophylaxis, DHARA stockings, SCDs and aspirin for DVT prophylaxis. Hemoglobin, hematocrit and vital signs were monitored during her hospital stay and remained stable. She developed some postoperative anemia with a hemoglobin of 9.6, but not require any blood transfusions. There were no complications. By postoperative day 2, she was tolerating a diabetic diet. Pain was controlled with oral pain medicine. She was participating in physical therapy and had no signs or symptoms of deep vein thrombosis. On postop day 2, she was discharged home and set up with home health services. She was given printed discharge instructions including prescriptions for Extra Strength Tylenol, aspirin 325 mg b.i.d., iron supplement, hydromorphone and MS Contin. Continue her home medications with the exception of her home dose of Tylenol which was stopped. Continue physical therapy, weightbearing as tolerated, DHARA stocking. Follow up 10-12 days or sooner if any problems or concerns.
== END 2017-03-16 13:05 | disposition home health service (06) | DRG 470 ==
LOC: ENRESERVTM → ENRESERV → ENRESERVDT → C.ACU 08:30 → C.3E 13:04
PROVIDERS: ADMIT Orthopaedic Surgery Sports Medicine; ATTEND Orthopaedic Surgery Sports Medicine
PROC: 0SRD0J9 Replacement of Left Knee Joint with Synthetic Substitute, Cemented, Open Approach (ICD-10-PCS; principal; 2017-03-14 10:30)
DX: M17.12 Unilateral primary osteoarthritis, left knee (principal); E78.00 Pure hypercholesterolemia, unspecified; I10 Essential (primary) hypertension; E11.9 Type 2 diabetes mellitus without complications; I73.00 Raynaud's syndrome without gangrene

== ENCOUNTER 2024-03-19 08:48 | Observation (INO) ==
--- NOTE | 2024-02-29 13:04 | PAT Medication Instructions ---
Medication Instructions Date of Service February 29, 2024 Home Medications acetaminophen 500 mg tablet 1,000 mg PO TID ammonium lactate 12 % topical cream 1 applic topical DAILY PRN dryness amoxapine 50 mg tablet 50 mg PO HS atenolol 50 mg tablet 50 mg PO QAM atorvastatin 10 mg tablet 10 mg PO QAM azelastine 137 mcg (0.1 %) nasal spray aerosol 1 spray intranasal BID cetirizine 10 mg tablet (Zyrtec) 10 mg PO HS clonazepam 0.5 mg tablet (Klonopin) 0.5 mg PO BID PRN Anxiety diclofenac sodium 1 % topical gel 4 g topical QID diclofenac sodium 75 mg tablet,delayed release 75 mg PO BID fluticasone propionate 50 mcg/actuation nasal spray,suspension 1 spray intranasal BID gabapentin 300 mg capsule 300 mg PO TID hydrochlorothiazide 25 mg tablet 25 mg PO QAM lisinopril 20 mg tablet 20 mg PO HS triamcinolone acetonide 0.1 % topical cream 1 applic topical DAILY ASK your surgeon for instructions diclofenac sodium 1 % topical gel 4 g topical QID diclofenac sodium 75 mg tablet,delayed release 75 mg PO BID STOP taking 24 hours before surgery ammonium lactate 12 % topical cream 1 applic topical DAILY PRN dryness triamcinolone acetonide 0.1 % topical cream 1 applic topical DAILY DO NOT take the morning of surgery hydrochlorothiazide 25 mg tablet 25 mg PO QAM Take morning of surgery With a small sip of water, OTHERWISE NOTHING TO EAT OR DRINK AFTER MIDNIGHT: acetaminophen 500 mg tablet 1,000 mg PO TID atenolol 50 mg tablet 50 mg PO QAM atorvastatin 10 mg tablet 10 mg PO QAM azelastine 137 mcg (0.1 %) nasal spray aerosol 1 spray intranasal BID clonazepam 0.5 mg tablet (Klonopin) 0.5 mg PO BID PRN Anxiety (if needed) fluticasone propionate 50 mcg/actuation nasal spray,suspension 1 spray intranasal BID gabapentin 300 mg capsule 300 mg PO TID Take evening before surgery acetaminophen 500 mg tablet 1,000 mg PO TID amoxapine 50 mg tablet 50 mg PO HS azelastine 137 mcg (0.1 %) nasal spray aerosol 1 spray intranasal BID cetirizine 10 mg tablet (Zyrtec) 10 mg PO HS clonazepam 0.5 mg tablet (Klonopin) 0.5 mg PO BID PRN Anxiety (if needed) fluticasone propionate 50 mcg/actuation nasal spray,suspension 1 spray intran ingris BID gabapentin 300 mg capsule 300 mg PO TID lisinopril 20 mg tablet 20 mg PO HS Other Notes If you have any questions please call us at [phone] or [phone] or [phone] or [phone]
--- NOTE | 2024-03-07 10:08 | Anesthesiology Consultation ---
Date of Service March 07, 2024 Assessment & Plan (1) Encounter for pre-operative examination: Plan - check BSG am DOS. - cardiology office visit 10/27/23 [facility]: "...HLD-intolerant to statins/zetia. HTN. T2DM...stable from a cardiac standpoint... - Outpatient joint assessment: Patient is currently scheduled for inpatient pathway. If re-evaluated and patient/surgeon requests outpatient pathway, patient is acceptable candidate for outpatient joint program from anesthesia standpoint pending surgeon's office assessment of pt motivation/support/completion of same day joint program preop requirements. Chart Review Chart Review: Acceptable Risk for Surgery and Patient seen in Pre Admission Testing Teaching & Discussion Pre-Anesthesia Teaching/Discussion Notes: Instructed NPO after midnight before surgery, except medications with 15 cc of water. Medication instructions provided according to the PAT guidelines. History Surgery Operation Date: 03/19/24 07:00 Proposed Procedures p Right Total Knee Arthroplasty - Puma Schrader MD Height/Weight Height: 5 ft 2 in Weight: 79.4 kg Allergies Allergy/AdvReac Type Severity Reaction Status Date / Time acetaminophen [From Percocet] Allergy Unknown no issues Verified 02/15/24 10:45 w/ acetaminophen amoxicillin Allergy Unknown hives Verified 02/15/24 10:24 aspirin [From Percodan] Allergy Unknown N/V Verified 02/15/24 10:45 Bactrim Allergy Unknown hives Verified 03/14/17 09:09 hydromorphone Allergy Unknown Vomiting Verified 02/15/24 10:45 morphine Allergy Unknown Vomiting Verified 02/15/24 10:45 Penicillins Allergy Unknown hives, OK Verified 02/15/24 10:24 to give ANCEF per Dr. Schrader [id number] sulfamethoxazole [Bactrim] Allergy Unknown hives Verified 02/15/24 10:24 trimethoprim [Bactrim] Allergy Unknown hives Verified 02/15/24 10:24 levofloxacin AdvReac Severe internal Unverified 02/15/24 10:24 bledding and pain clindamycin AdvReac Unknown flushing/sw Unverified 02/15/24 10:24 eating meperidine AdvReac Unknown flushing/sw Unverified 02/15/24 10:24 eating oxycodone AdvReac Unknown nausea/vomi Unverified 02/15/24 10:24 ting propoxyphene AdvReac Unknown vomiting/na Unverified 02/15/24 10:24 usea Htxvile-JNV-YsH Reductase AdvReac Unknown muscle Unverified 02/15/24 10:24 Inhibitor pain and [Yvawskq-Qaz-Kqc Reductase weakness Inhibitor] Medications Home Medications Medication Instructions Recorded Confirmed Last Taken acetaminophen 500 mg tablet 1,000 mg PO TID 02/15/24 02/15/24 Unknown ammonium lactate 12 % topical cream 1 applic topical DAILY PRN dryness 02/15/24 02/15/24 Unknown amoxapine 50 mg tablet 50 mg PO HS 02/15/24 02/15/24 Unknown atenolol 50 mg tablet 50 mg PO QAM 02/15/24 02/15/24 Unknown atorvastatin 10 mg tablet 10 mg PO QAM 02/15/24 02/15/24 Unknown azelastine 137 mcg (0.1 %) nasal 1 spray intranasal BID 02/15/24 02/15/24 Unknown spray aerosol cetirizine 10 mg tablet (Zyrtec) 10 mg PO HS 02/15/24 02/15/24 Unknown clonazepam 0.5 mg tablet (Klonopin) 0.5 mg PO BID PRN Anxiety 02/15/24 02/15/24 Unknown diclofenac sodium 1 % topical gel 4 g topical QID 02/15/24 02/15/24 Unknown diclofenac sodium 75 mg 75 mg PO BID 02/15/24 02/15/24 Unknown tablet,delayed release fluticasone propionate 50 1 spray intranasal BID 02/15/24 02/15/24 Unknown mcg/actuation nasal spray,suspension gabapentin 300 mg capsule 300 mg PO TID 02/15/24 02/15/24 Unknown hydrochlorothiazide 25 mg tablet 25 mg PO QAM 02/15/24 02/15/24 Unknown lisinopril 20 mg tablet 20 mg PO HS 02/15/24 02/15/24 Unknown triamcinolone acetonide 0.1 % 1 applic topical DAILY 02/15/24 02/15/24 Unknown topical cream artificial tears ointment 1 applic ophthalmic (eye) HS 03/07/24 03/07/24 Unknown Additional Notes: Patient brought home medication bottles and medication reconciliation was completed at visit. She was advised she can continue eye ointment in the evening as usual. She denied additional medications, verbalized understanding. Past Medical History Medical History (Updated 03/07/24 @ 10:25 by Deana Hendricks PA-C) Diabetes no meds, diet controlled Elevated cholesterol GERD (gastroesophageal reflux disease) infrequent History of COVID-19 2020- no hosp; resolved Hypertension controlled, stable per pt Raynauds disease Seasonal allergies Patient denies h/o stroke, seizures, heart attack, heart failure, blood clots/DVTs or blood transfusions. Exercise / Class Metabolic Activity II 4-5 Yardwork/Stairs/Walk up hill (denies chest discomfort or shortness of breath with 1 FOS) Past Surgical History Surgical History (Updated 03/07/24 @ 10:24 by Deana Hendricks PA-C) H/O section x 2 H/O tubal ligation History of left knee replacement Hx of colonoscopy Hx of dilation and curettage Hx of hemorrhoidectomy Hx of sinus surgery nasal button Past Anesthesia History No Hx of Anesthesia Complications and No Family Hx of Anesthesia Complications History of PONV No Hx of Motion Sickness and History of PONV (denies needing scop patch) Social History Smoking Status: Former smoker Do You Dip or Chew Tobacco: No Smoking End Date: quit 35 yrs ago Hx Alcohol Use: No Hx Substance Use: No substance use type: does not use Review of Systems Patient denies chest pain, shortness of breath, dyspnea on exertion, snoring, witnessed apneas, fever, chills, cough, wheezing, or palpitations. Physical Exam Vital Signs Vitals BP 120/79 P 57 TEMP 98.1 SP02 96% on RA RESP 18 Physical Patient resting comfortably in chair in no acute distress, alert and oriented, responding appropriately throughout visit Full cervical extension range of motion without pain TMD 3.5 finger breadths Mallampati Score 2 Dentition: multiple caps, denies chipped or loose teeth, implants or bridges Lungs: normal respiratory effort. Good air movement, clear throughout to auscultation, no adventitious breath sounds Cardiac: regular rate and rhythm, no murmurs noted Carotid arteries: negative bruit bilat Lab Results Anesthesia Preop Results Results Anesthesia Widget: WBC 7.63 K/ul (4.8-10.8) 03/07/24 Hgb 11.0 g/dl (12.0-16.0) L 03/07/24 Hct 34.6 % (37.0-47.0) L 03/07/24 Plt 234 K/uL (130-400) 03/07/24 Na 140 mmol/L (136-145) 03/07/24 K 4.9 mmol/L (3.5-5.1) 03/07/24 Cl 109 mmol/L (98-107) H 03/07/24 CO2 25 mmol/L (21-32) 03/07/24 BUN 27 mg/dl (6-23) H 03/07/24 Creat 1.17 mg/dl (0.6-1.2) 03/07/24 Glucose Level 106 mg/dl (70-99(Fasting)) H 03/07/24 PT 10.3 Seconds (9.0-12.0) 03/07/24 PTT 24 Seconds (21-31) 03/07/24 INR 0.9 (0.9-1.1) 03/07/24 HA1c 6.4 % (4.5-5.6) H 03/07/24 Blood Type A Positive 03/07/24 Antibody Screen NEGATIVE 03/07/24 Testing Electrocardiogram Date: 03/07/24 NSR, rate 64 bpm Chest X-Ray Date: 03/07/24 Cardiomegaly with no active disease in the chest.
--- NOTE | 2024-03-15 07:50 | History & Physical Report ---
Date of Service March 15, 2024 Assessment & Plan (1) Right knee DJD: 69-year-old female status post a left knee replacement 7+ years ago with advanced right knee DJD. She is failed conservative measures. She is ready proceed with right knee replacement. Plan: Khalida to take her to the operating do right total knee replacement for the risks Mente this procedure explained the patient clued but not limited to DVT PE infection neurological injury vascular injury bleeding palm pain limb range of motion this is fairly her symptoms incomplete relief of symptoms need for further surgery in future excetra. The patient understands and desires to proceed. Informed consent was obtained. Will use aspirin for DVT prophylaxis. She is diabetic for use of use insulin sliding scale coverage. Will likely use Dilaudid for postoperative pain control. She is planned to be discharged home using [facility]. (2) History of left knee replacement: History of Present Illness Chief Complaint: . Right knee pain. Primary Care Provider: Chato Sweet PA-C . Patient is a 69-year-old female 1 mm from previous left knee replacement done over 7 years ago. The left knee is done pretty well. Over the past several years she has developed increased pain discomfort in the right knee. She has been through extensive conservative treatment which become less successful over time. She did have a gel shot about a month ago which did not help at all. She has had steroid shots provide some temporary relief. Pains become more incapacitating. Is global pain. The more she is up and onto more it hurts. She will limps more as the day goes on. She is ready to have her knee fixed. Allergies Allergy/AdvReac Type Severity Reaction Status Date / Time acetaminophen [From Percocet] Allergy Unknown no issues Verified 02/15/24 10:45 w/ acetaminophen amoxicillin Allergy Unknown hives Verified 02/15/24 10:24 aspirin [From Percodan] Allergy Unknown N/V Verified 02/15/24 10:45 Bactrim Allergy Unknown hives Verified 03/14/17 09:09 hydromorphone Allergy Unknown Vomiting Verified 02/15/24 10:45 morphine Allergy Unknown Vomiting Verified 02/15/24 10:45 Penicillins Allergy Unknown hives, OK Verified 02/15/24 10:24 to give ANCEF per Dr. Schrader [id number] sulfamethoxazole [Bactrim] Allergy Unknown hives Verified 02/15/24 10:24 trimethoprim [Bactrim] Allergy Unknown hives Verified 02/15/24 10:24 levofloxacin AdvReac Severe internal Unverified 02/15/24 10:24 bledding and pain clindamycin AdvReac Unknown flushing/sw Unverified 02/15/24 10:24 eating meperidine AdvReac Unknown flushing/sw Unverified 02/15/24 10:24 eating oxycodone AdvReac Unknown nausea/vomi Unverified 02/15/24 10:24 ting propoxyphene AdvReac Unknown vomiting/na Unverified 02/15/24 10:24 usea Mlwiaxn-GEO-MhN Reductase AdvReac Unknown muscle Unverified 02/15/24 10:24 Inhibitor pain and [Hukqrqm-Uvt-Eko Reductase weakness Inhibitor] Home Medications Medication Instructions Recorded Confirmed Type acetaminophen 500 mg tablet 1,000 mg PO TID 02/15/24 02/15/24 History ammonium lactate 12 % topical cream 1 applic topical DAILY PRN dryness 02/15/24 02/15/24 History amoxapine 50 mg tablet 50 mg PO HS 02/15/24 02/15/24 History atenolol 50 mg tablet 50 mg PO QAM 02/15/24 02/15/24 History atorvastatin 10 mg tablet 10 mg PO QAM 02/15/24 02/15/24 History azelastine 137 mcg (0.1 %) nasal 1 spray intranasal BID 02/15/24 02/15/24 History spray aerosol cetirizine 10 mg tablet (Zyrtec) 10 mg PO HS 02/15/24 02/15/24 History clonazepam 0.5 mg tablet (Klonopin) 0.5 mg PO BID PRN Anxiety 02/15/24 02/15/24 History diclofenac sodium 1 % topical gel 4 g topical QID 02/15/24 02/15/24 History diclofenac sodium 75 mg 75 mg PO BID 02/15/24 02/15/24 History tablet,delayed release fluticasone propionate 50 1 spray intranasal BID 02/15/24 02/15/24 History mcg/actuation nasal spray,suspension gabapentin 300 mg capsule 300 mg PO TID 02/15/24 02/15/24 History hydrochlorothiazide 25 mg tablet 25 mg PO QAM 02/15/24 02/15/24 History lisinopril 20 mg tablet 20 mg PO HS 02/15/24 02/15/24 History triamcinolone acetonide 0.1 % 1 applic topical DAILY 02/15/24 02/15/24 History topical cream artificial tears ointment 1 applic ophthalmic (eye) HS 03/07/24 03/07/24 History Wheeled Walker #1 ea 03/11/24 Rx Past Med/Surg History Medical History GERD (gastroesophageal reflux disease) infrequent Seasonal allergies History of COVID-19 2020- no hosp; resolved Raynauds disease Elevated cholesterol Hypertension controlled, stable per pt Diabetes no meds, diet controlled Surgical History Hx of colonoscopy Hx of dilation and curettage Hx of hemorrhoidectomy Hx of sinus surgery nasal button History of left knee replacement H/O section x 2 H/O tubal ligation Social History Smoking Status: Former smoker Second Hand Exposure: No; Do You Dip or Chew Tobacco: No; Hx Alcohol Use: No Hx Substance Use: No Preferred Language: [place]an Communication Ability: Effective Histopath Tech Required: No Beliefs That Will Affect Care: None Current Living Situation: Spouse Feels Safe at Home: Yes Assistive Devices: Glasses Review of Systems All systems reviewed & are unremarkable except as noted in HPI & below. Physical Exam . Physical examination was a pleasant middle-age female but looks in pretty good health. Examination of both knees reveals patient walks independently. She clearly limps on the right side. Examination of the right knee reveals fairly neutral to slight varus alignment to her knee. She is diffusely tender. Small knee effusion. Range of motion about 5-1 15. No instability no pain with hip motion. Examination left knee reveals a well-healed incision. She has anatomic alignment to the knee. No swelling. Range of motion 0-1 20. Constitutional WD/WN, vitals as above Neck trachea midline, no thyromegaly Respiratory normal respiratory effort, lungs clear to auscultation Cardiovascular RRR, no murmur, no edema Gastrointestinal (Abdomen) normal bowel sounds, soft, nontender, no hepatosplenomegaly Results & Data Results & Data Laboratory Results . Diagnostic Findings . X-rays of the right knee reviewed. Shows advanced right knee DJD. She has complete loss of the medial joint space. She got tibiofemoral subluxation. She has osteophytes in all 3 compartments. The left knee replacement looks in good position without signs of problems. PG Care Time/CCT Total # of Minutes Spent Total Time Spent with Patient: Total time spent is greater than 50% in coordination of care (as documented) at patient's floor/unit and/or counseling patient: Coding Level of Care Code None Diagnoses Right knee DJD M17.11 History of left knee replacement Z96.652
[~2024-03-19 08:48] MED LIST changes: -ACET1TAB84 PO; -ACETAMINOPHEN 500 MG TAB PO SCH; -AMOX50TA PO; -ATEN50TA8 PO; -ATROPINE SULFATE 0.1 MG/ML 5ML SYR IV PRN; -BUPIVACAINE 0.25% 30 ML VIAL ONE; -BUPIVACAINE LIPOSOME 266 MG, BUPIVACAINE/EPINEPHRINE INJ 50 ML, SODIUM CHLORIDE 0.9% PF... INFIL SCH; -CEFAZOLIN 2000 MG/60 ML D5W 60 ML IV SCH; -CETI10TA84 PO; -CLON0.5T3 PO; -COEN100C11 PO; -EpHEDrine SULFATE INJ 50 MG/ML AMP IV PRN; -FAMOTIDINE 20 MG TAB PO SCH; -GABA-113 PO; -GABAPENTIN 300 MG CAP PO SCH; -HYDR25TA4 PO; -LACTATED RINGER'S 1000ML 1,000 ML IV SCH; -LACTATED RINGER'S 1000ML 500 ML IV ONE; -LACTATED RINGER'S 1000ML IV SCH; -LCHC12280 TOP; -LISI-725 PO; -MELO7.5T5 PO; -METOCLOPRAMIDE HCL 10 MG TAB PO SCH; -ONDANSETRON INJ 2 MG/ML 2 ML VIAL IV PRN; -REDCAP2 PO; +ROPIVACAINE 0.5% 5 MG/ML 30 ML VIAL ONE; -SCOPOLAMINE 1.5 MG TDSY TD SCH; -TRANEXAMIC ACID INJ 1,000 MG in SODIUM CHLORIDE 0.9% 100ML 100 ML IV SCH; -TRMCR130WC
[2024-03-19] MEDS ORDERED: MIDAZOLAM HCL 1 MG/ML 2ML VIAL ONE ×2 (09:13→11:26)
[2024-03-19] MEDS ORDERED: PROPOFOL IV EMULSION 10 MG/ML 20 ML VIAL IV ONE ×2 (09:13→11:18)
[2024-03-19] MEDS ORDERED: ePHEDrine sulfate 50 MG/ML AMP IV PRN (09:46)
[2024-03-19] MEDS ORDERED: fentaNYL citrate PF 100 MCG/2 ML VIAL IV PRN (09:46)
[2024-03-19] MEDS ORDERED: ATROPINE SULFATE 0.1 MG/ML 10ML SYR IV PRN (09:46)
[2024-03-19] MEDS ORDERED: ONDANSETRON INJ 2 MG/ML 2 ML VIAL IV PRN (09:46)
[2024-03-19] MEDS: CeleBREX 200 MG CAP PO SCH (09:48)
[2024-03-19] MEDS: METOCLOPRAMIDE HCL 10 MG TABLET PO SCH (09:48)
[2024-03-19] MEDS: ACETAMINOPHEN 500 MG TAB PO SCH (09:48)
[2024-03-19] MEDS: FAMOTIDINE 20 MG TAB PO SCH (09:50)
[2024-03-19] MEDS: Scopolamine 1 MG TDSY TD SCH (09:54)
[2024-03-19] MEDS: LR 500ML BOLUS, THEN 15ML/HR IV SCH (10:15)
[2024-03-19] MEDS: LR 60ML/HR IV SCH (10:22)
[2024-03-19] MEDS: dexAMETHasone**PF** 10 MG/ML VIAL ONE (10:23)
[2024-03-19] MEDS: DEXAMETHASONE SOD INJ 4 MG/ML VIAL IV STA (10:34)
--- NOTE | 2024-03-19 10:36 | History & Physical Bridge Note ---
Date of Service March 19, 2024 History & Physical Bridge Note I have examined the patient, reviewed the History & Physical and in the interval since the performance of the History & Physical I have noted the following changes of clinical significance: no changes noted
[2024-03-19] MEDS: ceFAZolin 2000MG 2,000 MG/15 ML SYR IV SCH (10:40)
[2024-03-19] MEDS ORDERED: ONDANSETRON INJ 2 MG/ML 2 ML VIAL ONE (10:58)
[2024-03-19] MEDS ORDERED: PHENYLEPHRINE HCL 10 MG/ML VIAL ONE (11:02)
[2024-03-19] MEDS: ROPIV 0.5% 246mg, Ketorolac 30mg, EPINEPHrine 0.5mg in NSS INFIL SCH (11:13)
[2024-03-19] MEDS ORDERED: ePHEDrine sulfate 50 MG/5 ML SYR ONE (11:17)
[2024-03-19] MEDS: ORTHO JOINT ANESTHETIC ONE (11:21)
[2024-03-19] MEDS: TRANEXAMIC ACID 1,000 MG **IV Intra-op IV SCH (11:31)
--- NOTE | 2024-03-19 12:28 | Operative Report ---
PG Post Operative Report Pre & Post Diagnosis Operation Date: 03/19/24 10:40 Pre-Op Diagnosis: Right Knee Degenerative Joint Disease Post-Op Diagnosis: Right Knee Degenerative Joint Disease I identified the patient and participated in the time-out.: Yes Procedure Operation Date: 03/19/24 10:40 Actual Procedures p Right Total Knee Arthroplasty(Right) - Puma Schrader MD Surgeon Puma Schrader MD Engineering Manager [employer] Krzysztof Walls PA-C Estimated Blood Loss 50 Findings Consistent with Post-Op Diagnosis Operative findings were advanced right knee DJD. She had extensive grade 4 [id number] disease of the medial and patellofemoral compartments. Moderate- sized joint effusion. Specimens Right knee sent for pathology. Anesthesia Type Spinal MAC Complications none Indications Patient is a 69-year-old female is had a long history of knee problems. She had her left knee replaced about 7 years ago was done pretty well from this. Over the past several years she developed increased pain discomfort in her right knee. She failed all conservative measures. X-rays show advanced right knee DJD. She elected proceed with surgical treatment. Description of Procedure Operative implants consist of: 1. Biomet Vanguard size 62.5 right posterior stabilized femoral component. 2. Biomet size 63 tibial tray. 3. 12 mm post stabilized polyethylene insert. 4. 31 x 8 all poly patella. The patient was taken the operating, identified, placed on the operating table in the supine position. All contact areas were appropriately padded. IV antibiotics tried by anesthesia team. Spinal anesthetic and abductor canal bloc k had been provided in the holding area. Velásquez catheter was placed in sterile fashion. Right Tetrick was then placed in the right lower extremities then prepped and draped in usual sterile fashion. The right leg was elevated and exsanguinated with use of an Esmarch and tourniquet placed at 300 mmHg. An anterior approach to the right knee was then performed to longitudinal incision centered over the patella. Sharp dissection carried through subcutaneous tissue down the extensor mechanism. A medial parapatellar arthrotomy incision was made. Some subperiosteal dissection was carried out medially. The fat pad was dissected from Neath patella tendon. Lateral patellofemoral ligament was released. Patella subluxated laterally and the knee was flexed. The osteophytes taken off distal femur. The ACL and PCL were then released from distal femur the tibia subluxated anteriorly. The external treatment line jig was then placed the interface the tibia and adjusted 14 mm medially. Proximal tibial cut was made remove about 2 to 3 mm of bone from the medial side. The tibia was sized to a size 63. Attention drawn the femur. The distal femur examined the sharp drill. Intramedullary canal was suction. A right 5 degree valgus cutting guide was placed. The distal femoral cutting block was pinned in place. Distal femoral cut was made take an additional 3 mm of bone off distal femur. The femur was then sized to a size 62.5. We did downsize this almost an entire size. The AP cutting block was pinned parallel to the epicondylar axis which was 4 degrees of external rotation. The anterior cut, anterior chamfer, posterior cut, posterior chamfer cuts were made. The box cutting guide was placed in the just slight lateral and the box cut was made. The knee was flexed. The remnants of the medial and lateral menisci were excised. The osteophyte taken off the posterior aspect the femur. Trial femoral component was placed. The tibial tray was pinned Antonette external rotat ion and the drill and stem punch used to create defect in proximal tibia for the tibial tray. The knee was then trialed and the 12 mm insert fit most appropriately. Attention drawn the patella. The patella was cleaned of all soft tissue. Patella thickness measured about 18 mm in thickness cut down to 12. Sized to a size 31 patella. The lug holes were drilled for 31 patella. The lateral osteophytes removed. Patella button was placed. Knee was taken through range of motion patella tracked nicely with no thumbs test. Attention drawn to placing the permanent components. All trial components were removed. Bone plug was placed into this femur limit blood loss. Double batch Palacos G cement was mixed. A Biomet Vanguard size 62.5 right posterior stabilized femoral component, size 63 tibial tray, 12 mm post stabilized polyethylene insert, and a 31 x 8 all poly patella then cemented in place. The knee was brought out into full extension till cement hardened. Final cement check was then performed. The pericapsular tissues were injected with total of 100 cc of orthopedic joint mix. The patient did receive 1 g tranexamic acid. The tourniquet was then let down for final tourniquet time 53 minutes. Hemostasis was assured use electrocautery. Extensor Metros then closed with combination 1 PDS suture #1 Vicryl suture in a [id number] fashion. Extensor Meclomen checked found to be intact and subcutaneous tissues then closed with 2 Dexon suture in a buried interrupted fashion skin was closed skin rubin. Leg was then cleaned and dried and a sterile dressing with Xer oform, 4 fours, sterile cast padding, Phil bandage were applied. Patient was then transferred to the recovery room in stable condition. Patient tolerated procedure well and there are no complications. Krzysztof Walls, my physician financial sales assistant, was present for the entire procedure. His assistance was essential and required for appropriate patient positioning, prepping and draping, surgical exposure, performing the technical details of the operation, placement the implants, closure of the wound, and placement of the sterile bandage. I attest to the content of the Intraoperative Record and any orders documented therein. Any exceptions are noted below.
--- NOTE | 2024-03-19 12:56 | Anesthesiology Progress Note ---
Date of Service March 19, 2024 Anesthesia Post Procedure Vital Signs Vital Signs: Temp Pulse Resp BP BP Pulse Ox O2 Del Method 03/19/24 12:45 98.4 F 55 L 17 104/53 L 98 Room Air 03/19/24 12:35 60 17 110/73 95 Room Air 03/19/24 12:25 67 17 109/71 97 Room Air 03/19/24 12:18 97.3 F L 70 21 109/69 99 Room Air 03/19/24 09:33 98.4 F 60 20 135/87 96 Room Air Pain Intensity Right Knee: Pain Intensity: 2 Transfer of Care Handoff Completed per policy Notes Mental Status: alert / awake / arousable and participated in evaluation Patient Amnestic to Procedure: Yes Nausea / Vomiting: adequately controlled Pain: adequately controlled Airway Patency, RR, SpO2: stable & adequate BP & HR: stable & adequate Hydration State: stable & adequate Neuraxial Anesthesia: was administered and sensory block is resolving Anesthetic Complications: no major complications apparent and Pt Satisfied with anesthetic care
--- NOTE | 2024-03-19 13:10 | XRay Report ---
RIGHT KNEE 2 VIEWS History: Right total knee arthroplasty. Degenerative arthritis. Postop. FINDINGS: The patient is status post a right total knee arthroplasty. The hardware is intact. No frac ture or dislocation. Skin rubin are in place. IMPRESSION: Right total knee arthroplasty. No evidence for hardware complication. ACT 112: Negative or not required by law. Electronically signed by: Oscar Hamilton M.D. 03/19/2024 1:08 PM
[2024-03-19] MEDS ORDERED: ALUMINUM/MAGNESIUM SUSP 30 ML UDC PO PRN (13:26)
[2024-03-19] MEDS ORDERED: MAGNESIUM HYDROXIDE SUSP 30 ML UDC PO PRN (13:26)
[2024-03-19] MEDS ORDERED: NALOXONE HCL 0.4 MG/1 ML VIAL/CARP IV PRN (13:26)
[2024-03-19] MEDS ORDERED: ONDANSETRON 4 MG OD TAB PO PRN (13:26)
[2024-03-19] MEDS ORDERED: HYDROmorphone INJ 0.5 MG/0.5 ML SYR IV PRN (13:26)
[2024-03-19] MEDS ORDERED: METOCLOPRAMIDE HCL INJ 5 MG/ML 2 ML VIAL IV PRN (13:26)
[2024-03-19] MEDS ORDERED: bisacodyL 10 MG SUPP PR PRN (13:26)
[2024-03-19] MEDS ORDERED: PHARMACY GLYCEMIC MGMT CONSULT PRN (13:26)
[2024-03-19] MEDS ORDERED: AMMONIUM LACTATE 12% LOTION 225 GM BTL EXT PRN (13:50)
--- NOTE | 2024-03-19 14:08 | Pharmacy Report ---
Pharmacy Glycemic Short Note 2 - Date of Service March 19, 2024 - Glycemic Short BSG Results (Last 24 hours): 03/19/24 03/19/24 09:37 12:20 POC Glucose 81 99 OUTPATIENT ANTIDIABETIC REGIMEN: * diet controlled * HbA1c 6.4% (03/07/24) ASSESSMENT: * Ashlee is a 69 YOF admitted status post total knee arthroplasty with a history of diabetes. Pharmacy has been consulted for glycemic management while inpatient. * Preoperative BSG below goal range, but not hypoglycemic. Received dexamethasone 10mg IV preoperatively, will add Novolog with a correction factor to cover any elevated BSGs. Hold basal insulin at this time. PLAN FOR INPATIENT GLYCEMIC CONTROL: * Basal insulin * hold * Bolus insulin * NovoLog per scale ACHS or Q6hrs while NPO * Goal Range: Low 140 mg/dL - High 180 mg/dL * Correction Factor: 50 mg/dL/unit * Nutritional / Prandial insulin per carb ratio of 1 unit per -- grams CHO consumed
[2024-03-19] MEDS: SODIUM CHLORIDE 0.9% 1,000 ML IV SCH (14:43)
[2024-03-19] MEDS: GABAPENTIN 300 MG CAP PO SCH (14:43)
[2024-03-19] MEDS: DICLOFENAC SOD 1% GEL 100 GM TUBE EXT SCH (14:46)
[2024-03-19] MEDS: INSULIN ASPART PER UNIT CHARGE SC SCH (17:06)
[2024-03-19] MEDS: Scopolamine CHECK PATCH PLACEMENT SCH (17:08)
[2024-03-19] MEDS: ASCORBIC ACID 500 MG TAB PO SCH (17:13)
[2024-03-19] MEDS: KETOROLAC TROMETHAMINE 15 MG/ML VIAL IV SCH (17:13)
[2024-03-19] MEDS: ceFAZolin 1000MG 1,000 MG/7.5 ML SYR IV SCH (17:13)
[2024-03-19] MEDS: TRANEXAMIC ACID / 0.7% NACL 1,000 MG/100 ML BAG IV SCH (18:22)
[2024-03-19] MEDS: ARTIFICIAL TEARS OP OINT 3.5 GM TUBE OP SCH (20:47)
[2024-03-19] MEDS: AZELASTINE HCL 0.1% NASAL 200 SPRAYS/27,400 MCG BTL NAE SCH (20:48)
[2024-03-19] MEDS: ASPIRIN 81 MG ECTAB PO SCH (20:48)
[2024-03-19] MEDS: CETIRIZINE HCL 10 MG TABLET PO SCH (20:50)
[2024-03-19] MEDS: FLUTICASONE PROPIONATE NA SPR 16 GM BTL NAE SCH (20:51)
[2024-03-19] MEDS: DOCUSATE SODIUM 100 MG CAP PO SCH (20:51)
[2024-03-19] MEDS: SENNA 8.6 MG TAB PO SCH (20:53)
[2024-03-19] MEDS: lisinopril 20 MG TAB PO SCH (20:53)
[2024-03-19] MEDS ORDERED: SENNA 8.6 MG TAB PO SCH (21:00)
[2024-03-19] MEDS: clonazePAM 0.5 MG TAB PO PRN (21:40)
[2024-03-19] MEDS: HYDROCODONE/ACETAMOPHEN 5/325MG TAB PO PRN (23:30)
[2024-03-19] MEDS: ONDANSETRON INJ 2 MG/ML 2 ML VIAL IV PRN (23:31)
[2024-03-20 05:59] LABS: Hematocrit (blood only) 28.2 % (37.0-47.0); Hemoglobin 9.4 g/dl (12.0-16.0); Mean Corpuscular Hemoglobin 29.5 pg (25.0-34.0); Mean Corpuscular Hgb Conc 33.3 g/dL (32.0-36.0); Mean Corpuscular Volume 88.4 fL (80.0-100.0); Mean Platelet Volume 10.6 fL (9.4-12.4); Platelet Count 185 K/uL (130-400); RDW Coefficient of Variation 12.7 % (11.5-14.5); RDW Standard Deviation 41.3 fL (36.4-46.3); Red Blood Count 3.19 M/uL (4.20-5.40); White Blood Count 15.67 K/ul (4.8-10.8)
[2024-03-20 06:18] LABS: BUN Creatinine Ratio 24.4 (10-20); Calcium 8.4 mg/dl (8.6-10.3); Creatinine Clr Calc Pharmacy 40.4 ml/min; Est GFR (African American) 48.7 ml/min; Potassium 4.8 mmol/L (3.5-5.1)
[2024-03-20] MEDS: MULTIVITAMIN TAB PO SCH (07:56)
[2024-03-20] MEDS: ATENOLOL 50 MG TABLET PO SCH (07:56)
[2024-03-20] MEDS: dexAMETHasone 10 MG in SYRINGE 0 ML IV SCH (07:56)
[2024-03-20] MEDS: hydroCHLOROthiazide 25 MG TAB PO SCH (07:57)
[2024-03-20] MEDS: ATORVASTATIN 10 MG TAB PO SCH (07:57)
[2024-03-20] MEDS: TRIAMCINOLONE ACET 0.1% CR 15 GM TUBE TOP SCH (07:59)
--- NOTE | 2024-03-20 12:40 | Surgery Progress Note ---
Date of Service March 20, 2024 Assessment & Plan (1) Status post right knee replacement: Plan: 69-year-old female postop day 1 from right knee replacement doing pretty well. Pain is controlled. She is neurologically intact. Plan: 1 DVT prophylaxis including thigh-high teds, SCDs, aspirin twice daily. 2. PT/OT. Weight-bear as tolerated. Right total knee protocol. 3. Pain control doing okay with current pain regimen. 4. Disposition plan to discharge to home with some home health and outpatient therapy. 5. Slightly elevated creatinine. Will stop and hold her Toradol. Encourage p.o. intake. (2) History of left knee replacement: Admission and Anticipated Discharge Date Admission Date: March 19, 2024 Subjective 69-year-old female postop day 1 from right knee replacement. She is doing pretty well. Pains controlled. Therapy went reasonably well. Denies any chest pain or shortness of breath. She is hoping to go home today. Physical Exam Physical Exam: Physical exam shows a pleasant middle-aged female. She is sitting up in her bedside chair and looks pretty comfortable. Examination of the right leg reveals the dressing be clean dry and intact. She can dorsiflex and plantarflex her foot appropriately. She is neurologically intact. Respiratory: normal respiratory effort, lungs clear to auscultation Cardiovascular: RRR, no murmur, no edema Gastrointestinal (Abdomen): normal bowel sounds, soft, nontender, no hepatosplenomegaly Results & Data Vital Signs (Past 12 Hours) Vital Signs Temp Pulse Resp BP BP Pulse Ox O2 Del Method 03/20/24 06:17 102/67 03/20/24 02:48 36.6 C 64 12 93/56 L 98 Room Air Laboratory Results Hemoglobin 9.4. Hematocrit 28.2. Creatinine slightly elevated at 1.31. Rest electrolytes are stable. PG Care Time/CCT Total # of Minutes Spent Total Time Spent with Patient: Total time spent is greater than 50% in coordination of care (as documented) at patient's floor/unit and/or counseling patient: Coding Level of Care Code 57694 Post Operative Follow-Up Diagnoses Status post right knee replacement Z96.651 History of left knee replacement Z96.652
[2024-03-20] MEDS ORDERED: ARTIFICIAL TEARS OP OINT 3.5 GM TUBE OP SCH (21:00)
--- NOTE | 2024-03-25 11:08 | Discharge Summary ---
Date of Service March 25, 2024 Discharge Data Procedures Performed Operation Date: 03/19/24 10:40 Actual Procedures p Right Total Knee Arthroplasty(Right) - Puma Schrader MD Hospital Course (1) Status post right knee replacement: This is a 69 year old patient admitted on 03/19/24 and underwent total knee arthroplasty. She tolerated the procedure well and there were no complications. Transferred to the PACU post op and later to the orthopedic floor for further care. She was given ancef for antibiotic prophylaxis. She was also given DHARA stockings, SCDs, and aspirin for DVT prophylaxis. Hemoglobin, hematocrit, and vital signs were monitored during her hospital stay and remained stable. Did not require any blood transfusions. There were no complications during her hospital stay. By post op day #1 the patient was tolerating a diabetic diet, pain was reasonably controlled with oral pain medicine, and she was participating in physical therapy. On post op day #1 the patient was discharged home and set up with home health care. She was given printed discharge instructions including prescriptions for extra strength tylenol, aspirin, ketorolac, cefadroxil, zofran, senokot, and hydrocodone/acetaminophen. Continue physical therapy, weight bearing as tolerated. Continue DHARA stockings. Follow up approximately 2 weeks post op or sooner if there are problems or concerns. Coding Level of Care Code None Diagnoses Status post right knee replacement Z96.651
== END 2024-03-20 14:52 | disposition home health service (06) ==
LOC: 3E 08:48 → ASU 08:48
DX: Z79.899 Other long term (current) drug therapy; K21.9 Gastro-esophageal reflux disease without esophagitis; Z88.8 Allergy status to other drugs, medicaments and biological substances; M17.11 Unilateral primary osteoarthritis, right knee; M25.761 Osteophyte, right knee; Z88.5 Allergy status to narcotic agent; Z88.1 Allergy status to other antibiotic agents; I10 Essential (primary) hypertension; I73.00 Raynaud's syndrome without gangrene; Z87.891 Personal history of nicotine dependence; Z88.2 Allergy status to sulfonamides; M65.9 Synovitis and tenosynovitis, unspecified; Z88.0 Allergy status to penicillin; Z79.82 Long term (current) use of aspirin; M25.461 Effusion, right knee; E11.9 Type 2 diabetes mellitus without complications; E78.5 Hyperlipidemia, unspecified; Z88.6 Allergy status to analgesic agent; Z96.652 Presence of left artificial knee joint